=== PATIENT | male | born 1975 | race Caucasian/White ===

== ENCOUNTER 2021-07-01 16:28 | Emergency (ER) | payer BC, OTHER ==
[~2021-07-01] VITALS: Ht 187.9 cm; Wt 81.6 kg
[2021-07-01 16:32] VITALS: BP 112/74
--- NOTE | 2021-07-01 17:11 | ED Lower Extremity ---
General Chief Complaint: Lower Extremity Stated Complaint: LT ANKLE INJ Nursing Triage Note: Patient reports he stepped into a hole in the ground with his left foot and felt something in the back of his calf pop. History of Present Illness Date Seen by Provider: Jul 01, 2021 Time Seen by Provider: 16:55 Initial Comments 46-year-old male presents with left lower leg pain. States he was walking and accidentally stepped in a hole and felt his foot suddenly hyper-extend then a pop in the back of his left leg. denies Hx of the same. No other injury or complaint Allergies and Home Medications Allergies Coded Allergies: aspirin (Verified Allergy, Unknown, 07/01/21) ibuprofen (Verified Allergy, Unknown, 07/01/21) ketorolac (Verified Allergy, Unknown, 07/01/21) Home Medications Hydrocodone/Acetaminophen 1 Each Tablet, 1 EACH PO Q4H Prescribed by: MADISON SANTOYO on 07/01/21 2689 Patient Home Medication List Home Medication List Reviewed: Yes Review of Systems Constitutional: No fever, No malaise, No weakness; other (pain) Respiratory: no symptoms reported Cardiovascular: no symptoms reported Musculoskeletal: see HPI, other (left lower leg pain - and left heel pain) Skin: No change in color, No rash Physical Exam Vital Signs Vital Signs - First Documented 07/01/21 16:32 Temp 36.1 Pulse 81 Resp 16 B/P (MAP) 112/74 (87) Pulse Ox 99 O2 Delivery Room Air Capillary Refill : Less Than 3 Seconds Height, Weight, BMI Height: '" Weight: lbs. oz. kg; 23.00 BMI Method: General Appearance: WD/WN, no apparent distress Ankles: left ankle bone tenderness, left ankle pain, left ankle soft tissue te nderness Feet: left foot pain, left foot soft tissue tenderness Neurologic/Psychiatric: no motor/sensory deficits, alert, normal mood/affect Skin: normal color Progress/Results/Core Measures Results/Orders My Orders Orders - MADISON SANTOYO DO Ankle 3 View Left (07/01/21 17:03) Hydrocodone/Apap 5/325 Tablet (Lortab 5 (07/01/21 17:15) Medications Given in ED Current Medications Medications Dose Ordered Sig/Kerrie Route Start Time Stop Time Status Last Admin Dose Admin Acetaminophen/ Hydrocodone Bitart 1 ea ONCE ONCE PO 07/01/21 17:15 07/01/21 17:16 DC 07/01/21 17:10 1 EA Vital Signs/I&O 07/01/21 16:32 Temp 36.1 Pulse 81 Resp 16 B/P (MAP) 112/74 (87) Pulse Ox 99 O2 Delivery Room Air Blood Pressure Mean: 87 Departure Impression Primary Impression: Strain of left calf muscle Disposition: 01 HOME, SELF-CARE Condition: Stable Departure-Patient Inst. Decision time for Depature: 17:32 Referrals: NO,LOCAL PHYSICIAN (PCP) Primary Care Physician ZEYAD LEON MD Patient Instructions: Lower Extremity Muscle Strain (DC) Add. Discharge Instructions: Call Dr Leon's office TOMORROW to schedule a follow up appointment. All discharge instructions reviewed with patient and/or family. Voiced understanding. Scripts Hydrocodone/Acetaminophen (Hydrocodone-Acetamin 5-325 mg) 1 Each Tablet 1 EACH PO Q4H for Abdominal Pain, #15 TAB Prov: MADISON SANTOYO DO 07/01/21 MADISON SANTOYO DO Jul 01, 2021 17:11
[2021-07-01] MEDS ORDERED: HYDROcodone/APAP 5 MG/325 MG (LORTAB) TAB PO ONE (17:15)
[2021-07-01] MEDS ORDERED: ACHD5005 PO (17:32)
--- NOTE | 2021-07-01 17:43 | Diagnostic Imaging Report ---
EXAMINATION: Left ankle radiograph, 3 views. COMPARISON: None. HISTORY: 46-year-old male, left heel pain. Injury. FINDINGS: Radiographs are nondiagnostic for assessment of the Achilles tendon. There is no identified acute fracture. There is no radiographically apparent loss of normal fat attenuation in the region of the retrocalcaneal bursa. There is no tibiotalar joint effusion. The alignment of the ankle mortise is unremarkable. There is a very small ossification which is well-corticated adjacent to the distal fibula which may relate to the sequela of remote prior injury as well as a similar appearing tiny ossicle adjacent to the tip of the medial malleolus. There is no identified radiopaque foreign body. IMPRESSION: 1. No identified acute bony abnormality at the level of the left ankle. 2. Radiographs are not sensitive for evaluation for Achilles tendon pathology. This would be more optimally evaluated on dedicated MRI of the ankle without contrast, as indicated clinically. Dictated by: Dictated on workstation # [id number]
== END 2021-07-01 17:58 | disposition home or self-care (01) ==
LOC: ER FS 16:30
DX: S86.912A Strain of unspecified muscle(s) and tendon(s) at lower leg level, left leg, initial encounter (principal); W18.42XA Slipping, tripping and stumbling without falling due to stepping into hole or opening, initial encounter
CPT/HCPCS: 73610